=== PATIENT | male | born 1940 | race Caucasian/White ===

== ENCOUNTER 2017-11-04 20:36 | Emergency (ER) | payer MEDICARE, OTHER, SELFPAY ==
[2017-11-04 20:58] VITALS: BP 155/93; PULSE 58; RESP 18; TEMP 36.6; O2SAT 98; BMI 27.3
[2017-11-04 23:10] VITALS: BP 190/98; PULSE 59; RESP 16; O2SAT 96
--- NOTE | 2017-11-04 23:53 | ED_ITS ---
HPI - Extremity Injury (Lower) General Chief Complaint: Extremity Injury, Lower Stated Complaint: FALL IN WATER LEFT LEG LACERATION Time Seen by Provider: 11/04/17 21:22 Source: patient Mode of arrival: ambulatory Limitations: no limitations History of Present Illness HPI Narrative: 77-year-old male was walking his dog on a leash when it ran and pulled him causing him to fall off the dock. In doing so he suffered deep irregular laceration on his posterior left leg. His tetanus is NOT current. He has full range of motion and denies any numbness, tingling or weakness. He denies other injury. He is otherwise well and free of complaint MD complaint: leg injury Type of Injury: laceration Place: street/outdoors Severity: mild Relieving factors: nothing Exacerbating factors: nothing Context: direct blow Related Data Previous Rx's Medication Instructions Recorded doxycycline hyclate 100 mg PO BID #20 tab 11/05/17 Review of Systems Review of Systems All systems reviewed & are unremarkable except as noted in HPI and below Constitutional Denies chills, Denies fever(s), Denies lethargy and Denies weakness Eyes Denies change in vision, Denies eye discharge, Denies irritation and Denies loss of vision ENT Ears, Nose, Mouth, and Throat: Denies change in voice, Denies neck pain and Denies sore throat Cardiovascular Denies chest pain, Denies irregular heart rhythm, Denies lightheadedness, Denies palpitations, Denies dyspnea, Denies dyspnea on exertion and Denies orthopnea Respiratory Denies cough, Denies dyspnea, Denies dyspnea on exertion and Denies wheezing Gastrointestinal Gastrointestinal: Denies abdominal pain, Denies change in bowel habits, Denies diarrhea, Denies nausea and Denies vomiting Genitourinary Denies hematuria, Denies flank pain, Denies urinary incontinence and Denies urinary urgency Musculoskeletal Denies neck pain Integumentary/Breasts Denies pruritus, Denies erythema, Denies rash and Reports wounds Neurologic Denies confusion, Denies loss of vision and Denies weakness Psychiatric Denies anxiety, Denies confusion, Denies depression, Denies homicidal ideation and Denies suicidal ideation Endocrine Denies palpitations Hematologic/Lymphatic Denies easy bruising Allergic/Immunologic Denies wheezing PFSH Social History Smoking Status: Never smoker Exam Narrative Exam Narrative: GEN: AOx3 and in mild distress EYES: Pupils are equal, round, and reactive to light and accommodation. Extraoccular muscles are intact bilaterally. There is no subconjunctival hemorrhage or exudate. CHEST: Lungs are clear to auscultation bilaterally and free of wheezes, rales, or rhonchi. Heart rate is regular rhythm, there are no murmurs, clicks, rubs, or gallops. There is no chest wall tenderness. ABD: Abdomen is soft and nontender. There is no guarding or rebound. Bowel sounds are normal in all 4 quadrants. There is no mass or organomegaly. EXT: 9 cm laceration, flap orientation, left lower extremity. Posterior calf SKIN: Warm, pink, and dry. No erythema or rash Initial Vital Signs Initial Vital Signs: Vital Signs Temperature 98 F 11/04/17 20:58 Pulse Rate 58 L 11/04/17 20:58 Respiratory Rate 18 11/04/17 20:58 Blood Pressure 155/93 H 11/04/17 20:58 Pulse Oximetry 98 11/04/17 20:58 Procedures Laceration Repair Laceration 1: Site: lower extremity Side (If applicable): left Size (cm): 9 Description: flap and irregular Depth: simple, single layer Local Anesthetic: lidocaine 1% and with bicarb Amount of anesthesia used (mL): 10 Pre-repair: wound explored, irrigated extensively and deep structures intact Skin layer closed with: nylon Size (cm): 4-0 Number of sutures: 11 Technique: simple, interrupted and horizontal mattress Course Orders Ordered: Discontinued Medications Diphtheria/Tetanus/Acell Pertussis (Adacel) 0.5 ml IM .ONCE ONE Stop: 11/04/17 23:41 Last Admin: 11/05/17 00:01 Dose: 0.5 ml Doxycycline Hyclate (Vibramycin) 100 mg PO NOW ONE Stop: 11/05/17 00:30 Last Admin: 11/05/17 00:43 Dose: 100 mg Vital Signs - 8 hr 11/04/17 23:10 11/05/17 00:53 Pulse Rate 59 L 63 Respiratory Rate 16 18 Blood Pressure [Left Arm] 190/98 H 176/101 H Pulse Oximetry 96 97 Discharge Plan Departure Patient Disposition: Home, Self-Care Clinical Impression: Laceration Discharge Date/Time: 11/05/17 01:01 Interventions: ED Discharge Assessment Last Done: 11/05/17 01:00 Instructions: DI for Laceration Repair Activity Restrictions/Additional Instructions: *You have been diagnosed with [ laceration left lower extremity ] *What to do: *Take medications as directed *Follow up with your primary care provider in 7-10 days, call for an appointment. Let them know you were seen in the Emergency Department and that we ask that you be seen in follow up *Return to ER if you should have any new, worsening or concerning symptoms , such as [increasing pain, swelling, redness, drainage or other bothersome symptoms. Despite extensive effort to clean this wound and place her on antibiotics it still runs a rather high risk of becoming infected ] Prescriptions: New doxycycline hyclate 100 mg tablet 100 mg PO BID Qty: 20 RF: 0
[2017-11-05] MEDS: TET,DIPH,PERTUSS(ACELL),VAC/PF 0.5 ML SYRINGE IM (00:01)
[2017-11-05] MEDS: DOXYCYCLINE HYCLATE 100 MG TABLET PO (00:43)
[2017-11-05 00:53] VITALS: BP 176/101; PULSE 63; RESP 18; O2SAT 97
--- NOTE | 2017-11-05 03:05 | PC.NURSE ---
I assisted dr alvares with suturing and then appled steri strips.i then applied telfa,gauze wrap and coban covering.he left ambulatory with steady gait and was joking with staff.
== END 2017-11-05 01:01 | disposition home or self-care (01) ==
PROVIDERS: Emergency Provider Emergency Medicine
DX: S81.812A Laceration without foreign body, left lower leg, initial encounter (principal); W26.9XXA Contact with unspecified sharp object(s), initial encounter; W17.4XXA Fall from dock, initial encounter
CPT/HCPCS: 12004; 90471; 99282; 99283; 90715